=== PATIENT | female | born 1960 | race Two or more races ===

== ENCOUNTER 2018-12-11 13:04 | Emergency (ER) | payer OTHER ==
--- NOTE | 2018-12-11 13:09 | PDOC ---
Rapid Medical Evaluation Time Seen by Provider: 12/11/18 13:05 Medical Evaluation: Allergies Allergy/AdvReac Type Severity Reaction Status Date / Time No Known Allergies Allergy Verified 12/11/18 13:06 12/11/18 13:06 I have performed a brief in-person evaluation of this patient. The patient presents with a chief complaint of nausea and numbness since last night. Also reports shortness of breath with exertion. Patient reports no chest pain or dizziness Pertinent physical exam findings NAD lungs clear bilaterally, unlabored breathing heart s1s2 no pedal edema I have ordered the following labs, ekg The patient will proceed to the ED for further evaluation.
[2018-12-11 13:10] VITALS: TEMP 97.5; BMI 27.1
[2018-12-11 13:51] LABS: BASO % 0.5 % (0-2.0); EOS % 1.9 % (0-4.5); HEMATOCRIT 41.2 % (32.4-45.2); HEMOGLOBIN 14.2 GM/dL (10.7-15.3); LYMPH % 42.2 % (8-40); MCH 30.3 pg (25.7-33.7); MCHC 34.4 g/dl (32.0-36.0); MEAN CELL VOLUME 87.9 fl (80-96); MEAN PLT VOLUME 7.9 fl (7.5-11.1); MONO % 4.3 % (3.8-10.2); NEUT % 51.1 % (42.8-82.8); PLATELET COUNT 261 K/MM3 (134-434); RBC 4.68 M/mm3 (3.60-5.2); RDW 13.3 % (11.6-15.6); WHITE BLOOD COUNT 7.2 K/mm3 (4.0-10.0)
[2018-12-11 14:09] LABS: INR 0.97 (0.83-1.09); PROTHROMBIN TIME (PATIENT) 11.5 SEC (9.7-13.0)
[2018-12-11 14:11] LABS: ACTIVATED PTT 32.9 SECONDS (25.2-36.5)
[2018-12-11 14:26] LABS: ALBUMIN 4.2 g/dl (3.4-5.0); ALK PHOS 149 U/L (45-117); ANION GAP 8 MMOL/L (8-16); BILIRUBIN,TOTAL 0.3 mg/dL (0.2-1); BLOOD UREA NITROGEN 12 mg/dL (7-18); CALCIUM 9.3 mg/dL (8.5-10.1); CHLORIDE 106 mmol/L (98-107); CO2 25 mmol/L (21-32); CREATININE 0.7 mg/dL (0.55-1.3); GLUCOSE,RANDOM 83 mg/dL (74-106); POTASSIUM 3.9 mmol/L (3.5-5.1); SGOT/AST 15 U/L (15-37); SGPT/ALT 25 U/L (13-61); SODIUM 139 mmol/L (136-145); TOT PROT 7.8 g/dl (6.4-8.2)
--- NOTE | 2018-12-11 14:40 | PDOC ---
History of Present Illness - General History Source: Patient Exam Limitations: No Limitations - History of Present Illness Initial Comments: 12/11/18 15:00 58 yo F with a hx HTN presents to the emergency department with the left chest pain radiating to the left arm with associative left arm/hand numbness with nausea. Per the patient, she has had this numberness before in the past. Worse today. These symptoms occurred last night. constant, pressure like, 5/10, with no relieving factors. no emesis. worsening symptoms when exerting oneself. endorses mild SOB, chills, and loss of appetite. evaluated by dr portillo. no stress test or echo in the past. denies the following: trauma in neck and head, visual changes, ENT ssx, abdiominal pain, back pain, dysuria, incontinence, hematuria, diarrhea, sick contacts, and hematochezia. No leg pain/swelling. <Stan Odell - Last Filed: 12/12/18 11:09> <Cheyenne Zuleta - Last Filed: 12/14/18 10:14> - General Chief Complaint: Chest Pain Stated Complaint: SENT BY PCP Time Seen by Provider: 12/11/18 13:05 Past History - Past Medical History COPD: No HTN: Yes (PT STATES HX OF HYPERTENSION, BUT NOT ON MEDS, WAS TAKEN OFF BY PMD) - Immunization History Immunization Up to Date: Yes - Suicide/Smoking/Psychosocial Hx Smoking Status: No Smoking History: Never smoked Have you smoked in the past 12 months: No Number of Cigarettes Smoked Daily: 0 Information on smoking cessation initiated: No Hx Alcohol Use: No Drug/Substance Use Hx: No Substance Use Type: None Hx Substance Use Treatment: No <Satn Odell - Last Filed: 12/12/18 11:09> <Cheyenne Zuleta - Last Filed: 12/14/18 10:14> - Past Medical History Allergies/Adverse Reactions: Allergies Allergy/AdvReac Type Severity Reaction Status Date / Time No Known Allergies Allergy Verified 12/11/18 13:06 Home Medications: Ambulatory Orders NK [No Known Home Medication] 12/11/18 Review of Systems - Review of Systems Able to Perform ROS?: Yes Is the patient limited Kuwaiti proficient: No Constitutional: Yes: Chills, Loss of Appetite, Weakness. No: Diaphoresis, Fever HEENTM: No: Eye Pain, Ear Pain, Nose Pain, Throat Pain, Mouth Pain Respiratory: Yes: Shortness of Breath. No: Cough Cardiac (ROS): No: Chest Pain, Lightheadedness, Palpitations, Syncope, Chest Tightness ABD/GI: Yes: Nausea, Poor Appetite. No: Constipated, Diarrhea, Poor Fluid Intake, Rectal Bleeding, Vomiting, Tarry Stools : No: Burning, Dysuria, Hematuria Musculoskeletal: No: Back Pain, Joint Pain, Neck Pain Integumentary: No: Bruising, Erythema, Rash Neurological: No: Headache, Numbness, Tingling, Tremors, Dizziness Psychiatric: No: Change in Appetite Endocrine: No: Unexplained Weight Gain Hematologic/Lymphatic: No: Anemia <CassStan - Last Filed: 12/12/18 11:09> *Physical Exam - Vital Signs Last Vital Signs Temp Pulse Resp BP Pulse Ox 97.5 F L 93 H 17 166/102 H 100 12/11/18 13:06 12/11/18 13:06 12/11/18 13:06 12/11/18 13:06 12/11/18 13:06 - Physical Exam General Appearance: Yes: Nourished, Appropriately Dressed. No: Apparent Distress, Intoxicated HEENT: positive: EOMI, JOSE ROBERTO, Normal Voice, Symmetrical, Pharynx Normal, Hearing Grossly Normal. negative: Pale Conjunctivae, Scleral Icterus (R), Scleral Icterus (L), Muffled/Hoarse voice, Pharyngeal Erythema, Tonsillar Exudate, Tonsillar Erythema, Excessive drooling Neck: positive: Trachea midline, Supple. negative: Tender, Lymphadenopathy (R) , Lymphadenopathy (L), Tender lateral, Tender midline Respiratory/Chest: positive: Lungs Clear, Normal Breath Sounds. negative: Chest Tender, Respiratory Distress, Accessory Muscle Use, Rales, Rhonchi, Stridor, Wheezing Cardiovascular: positive: Regular Rhythm, Regular Rate, S1, S2. negative: Systolic Murmur Gastrointestinal/Abdominal: positive: Normal Bowel Sounds, Tender (epigastric region), Flat, Soft. negative: Guarding, Rebound Lymphatic: negative: Adenopathy Musculoskeletal: positive: Normal Inspection. negative: CVA Tenderness, Vertebral Tenderness Extremity: positive: Normal Capillary Refill, Normal Inspection, Normal Range of Motion. negative: Tender Integumentary: positive: Normal Color, Dry, Warm. 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 negative: Motor Strength 5/5 (4/5 left hand bonderizer operator strength. no deficits in sensation) <CassStan - Last Filed: 12/12/18 11:09> - Vital Signs Last Vital Signs Temp Pulse Resp BP Pulse Ox 97.5 F L 67 18 154/81 100 12/11/18 13:06 12/11/18 18:01 12/11/18 18:01 12/11/18 18:01 12/11/18 18:01 <Cheyenne Zuleta - Last Filed: 12/14/18 10:14> Moderate Sedation - Procedure Monitoring Vital Signs: Procedure Monitoring Vital Signs Temperature 97.5 F L 12/11/18 13:06 Pulse Rate 93 H 12/11/18 13:06 Respiratory Rate 17 12/11/18 13:06 Blood Pressure 166/102 H 12/11/18 13:06 O2 Sat by Pulse Oximetry (%) 100 12/11/18 13:06 <Stan Odell - Last Filed: 12/12/18 11:09> - Procedure Monitoring Vital Signs: Procedure Monitoring Vital Signs Temperature 97.5 F L 12/11/18 13:06 Pulse Rate 67 12/11/18 18:01 Respiratory Rate 18 12/11/18 18:01 Blood Pressure 154/81 12/11/18 18:01 O2 Sat by Pulse Oximetry (%) 100 12/11/18 18:01 <Cheyenne Zuleta - Last Filed: 12/14/18 10:14> Heart Score/ECG Review - History History: Slightly suspicious - Electrocardiogram EKG: Normal - Age Age: 45-65 - Risk Factors Based on the list above the patient has:: 1-2 risk factors - Troponin Troponin: </= normal limit - Score Heart Score - Total: 2 <CassStan - Last Filed: 12/12/18 11:09> ED Treatment Course - LABORATORY CBC & Chemistry Diagram: 12/11/18 13:22 12/11/18 13:22 - ADDITIONAL ORDERS Additional order review: Laboratory Results 12/11/18 12/11/18 13:22 13:22 PT with INR 11.50 INR 0.97 PTT (Actin FS) 32.9 Sodium 139 Potassium 3.9 Chloride 106 Carbon Dioxide 25 Anion Gap 8 BUN 12 Creatinine 0.7 Creat Clearance w eGFR > 60 Random Glucose 83 Calcium 9.3 Total Bilirubin 0.3 AST 15 ALT 25 Alkaline Phosphatase 149 H Troponin I < 0.02 Total Protein 7.8 Albumin 4.2 12/11/18 13:22 RBC 4.68 MCV 87.9 MCHC 34.4 RDW 13.3 MPV 7.9 Neutrophils % 51.1 Lymphocytes % 42.2 H D Monocytes % 4.3 Eosinophils % 1.9 Basophils % 0.5 <Stan Odell - Last Filed: 12/12/18 11:09> - LABORATORY CBC & Chemistry Diagram: 12/11/18 13:22 12/11/18 13:22 - ADDITIONAL ORDERS Additional order review: 12/11/18 13:22 RBC 4.68 MCV 87.9 MCHC 34.4 RDW 13.3 MPV 7.9 Neutrophils % 51.1 Lymphocytes % 42.2 H D Monocytes % 4.3 Eosinophils % 1.9 Basophils % 0.5 - RADIOLOGY Radiology Studies Ordered: Category Date Time Status CHEST X-RAY PORTABLE* [RAD] Stat Radiology 12/11/18 16:13 Completed - Medications Given in the ED: ED Medications Discontinued Medications Generic Name Dose Route Start Last Admin Trade Name Carmelo PRN Reason Stop Dose Admin Al Hydroxide/Mg Hydroxide 30 ml 12/11/18 16:21 12/11/18 16:55 Mylanta Oral Suspension - PO 12/11/18 16:22 30 ml ONCE ONE Administration Famotidine/Sodium Chloride 20 mg in 50 mls @ 100 mls/hr 12/11/18 16:21 16:55 Pepcid 20 Mg Premixed Ivpb - IVPB 12/11/18 16:50 100 mls/hr ONCE ONE Administration Ondansetron HCl 4 mg 12/11/18 16:21 12/11/18 16:55 Zofran - PO 12/11/18 16:22 4 mg ONCE ONE Administration <Cheyenne Zuleta - Last Filed: 12/14/18 10:14> Medical Decision Making - Medical Decision Making 58 yo F with a hx HTN presents to the emergency department with the left chest pain radiating to the left arm with associative left arm/hand numbness with nausea. Initial vitals: Initial Vital Signs Temp Pulse Resp BP Pulse Ox 97.5 F L 93 H 17 166/102 H 100 12/11/18 13:06 12/11/18 13:06 12/11/18 13:06 12/11/18 13:06 12/11/18 13:06 work up: ddx: ACS vs pNA pleuritis vs cervical radiculopathy vs gastritis vs pancreatitis vs GERD Laboratory Tests 12/11/18 12/11/18 12/11/18 13:22 13:22 13:22 WBC 7.2 RBC 4.68 Hgb 14.2 Hct 41.2 MCV 87.9 MCH 30.3 MCHC 34.4 RDW 13.3 Plt Count 261 MPV 7.9 Absolute Neuts (auto) 3.7 Neutrophils % 51.1 Lymphocytes % 42.2 H D Monocytes % 4.3 Eosinophils % 1.9 Basophils % 0.5 Nucleated RBC % 0 PT with INR 11.50 INR 0.97 PTT (Actin FS) 32.9 Sodium 139 Potassium 3.9 Chloride 106 Carbon Dioxide 25 Anion Gap 8 BUN 12 Creatinine 0.7 Creat Clearance w eGFR > 60 Random Glucose 83 Calcium 9.3 Total Bilirubin 0.3 AST 15 ALT 25 Alkaline Phosphatase 149 H Troponin I < 0.02 Total Protein 7.8 Albumin 4.2 12/11/18 16:58 WBC RBC Hgb Hct MCV MCH MCHC RDW Plt Count MPV Absolute Neuts (auto) Neutrophils % Lymphocytes % Monocytes % Eosinophils % Basophils % Nucleated RBC % PT with INR INR PTT (Actin FS) Sodium Potassium Chloride Carbon Dioxide Anion Gap BUN Creatinine Creat Clearance w eGFR Random Glucose Calcium Total Bilirubin AST ALT Alkaline Phosphatase Troponin I < 0.02 Total Protein Albumin HEART score 3 with risk factors and symptoms. patient has negative x2 troponins. significant improvement in symptoms with GI cocktail. patient's EKG shows NSR without ST elevations or depressions. CXR was within normal limits with no acute pathologies. she was sent in by her composing room supervisor. she was evaluated by Dr. Zheng who stated she can be DCd with follow up after negative x2 troponin. patient was given return precautions and instruction to follow up with her composing room supervisor within 72 hours after discharge. a call was placed to her composing room supervisor with the results and he is aware of her discharge. Dispo: Discharge <Stan Odell - Last Filed: 12/12/18 11:09> *DC/Admit/Observation/Transfer - Discharge Dispostion Decision to Admit order: No <Stan Odell - Last Filed: 12/12/18 11:09> <Cheyenne Zuleta - Last Filed: 12/14/18 10:14> Diagnosis at time of Disposition: Abdominal pain Chest pain Qualifiers: Chest pain type: unspecified Qualified Code(s): R07.9 - Chest pain, unspecified - Discharge Dispostion Disposition: HOME Condition at time of disposition: Improved - Referrals Referrals: Be Almazan MD [Primary Care Provider] - Gab Shelton MD [Staff Physician] - - Patient Instructions Printed Discharge Instructions: DI for Atypical Chest Pain Additional Instructions: you were seen in the emergency department for the evaluation of your chest pain. your troponins were negative which measures damage in the heart. please follow up with your composing room supervisor within 96 hours after discharge for follow up care and management. please return to the emergency department if you have worsening symptoms or new concerning symptoms such as fevers, shortness of breath worsening, and vomiting. please return if you become very weak. thank you. - Post Discharge Activity Forms/Work/School Notes: Back to Work
--- NOTE | 2018-12-11 14:58 | PDOC ---
Attending Attestation - Resident Resident Name: Skinny Crook - ED Attending Attestation I have performed the following: I have examined & evaluated the patient, The case was reviewed & discussed with the resident, I agree w/resident's findings & plan - [facility] HPI: 12/11/18 16:24 The patient is a 58 year old female, with a significant past medical history of HTN (untreated), who presents today with left chest wall pain which radiates to the left arm with occasional left finger/arm tingling.. last night she had episode of cp, nausea. denies exacerbating or alleviating factors. no food precipitants. sent in from Dr Weaver's office for cards assessment and workup for cp. Allergies: NKA Past Medical History: HTN (untreated) Social history: Lives with family. No smoking. No alcohol. No illicit drugs. PMD: Dr. Weaver 12/11/18 16:25 - Physicial Exam PE: 12/11/18 16:25 NAD, well appearing, PERRL, EOMI, MMM, nl conjunctiva, anicteric; neck supple. no chest wall tenderness. lungs clear, RRR, abdomen soft nontender. RAMOS x4, no focal neuro deficits. No peripheral edema. normal color for ethnicity, WWP. - Medical Decision Making 12/11/18 14:57 See HPI for details Vital signs reviewed, wnl. mildly hypertensive. Prior notes reviewed, including admissions, discharges and consultations. laboratory results and imaging reviewed, basic labs and lytes wnl CXR_no acute chest pathology, normal cardiac silhouette, no edema/effusion or consolidation. normal interstitial markings. Cardiac panel_neg trops x2, so unlikely ACS EKG normal sinus rhythm, no interval abnormalities, narrow QRS, ST and T wave segments and morphology normal. Nonspecific T wave abnormalities Heart score 2 based on comorbidities, age and history. MACE risk <1.7%. ED course: no acute events, chest pain free repeat VS normalized. no tachy or hypoxia. Reassessment, patient is also complaining of epigastric discomfort, nausea. She is drinking selzer water at the bedside with the carbonation likely precipitating her symptoms. Given Pepcid, Maalox and Zofran for her nausea with symptomatic relief. On reassessment abdominal symptoms have resolved, benign no peritoneal findings. At the bedside by supervisor wood room group, Dr Arzola who agrees with the plan for 2 trop, low risk cp and followup as outpatient with Dr Weaver call to Dr Weaver with clinical update, agreeable. Pt to be discharged in stable condition. Patient and family made aware of impression and plan, return precautions discussed (including but not limited to worsening pain or symptoms), fevers, or signs of infection, chest pain, respiratory distress, inability to tolerate oral intake, dehydration, syncope, or neurologic changes). Follow up with PMD and/or specialist as recommended, follow up information provided, take medications as instructed for duration of time. continue with supportive care, avoid triggers and precipitants. All questions answered to patient's satisfaction and expressed understanding and comfort with this. Patient does not suffer from an acute life-threatening medical condition at this time she is safe for outpatient follow-up. 12/11/18 17:53 12/11/18 17:58 <Cheyenne Zuleta - Last Filed: 12/11/18 17:58> Heart Score/ECG Review #1 ECG reviewed & interpreted by me at: 13:05 General ECG Interpretation: Sinus Rhythm Compared to previous ECG there are: No significant change 12/11/18 15:28 EKG normal sinus rhythm at 80 bpm, no interval abnormalities, narrow QRS, ST and T wave segments and morphology normal. Nonspecific T wave abnormality in III , no contiguous lead changes <Cheyenne Zuleta - Last Filed: 12/11/18 17:58> Attestations - Attestations 12/11/18 16:26 Documentation prepared by Shelley Orona, acting as medical payment poster for Cheyenne Zuleta MD. <Shelley Orona - Last Filed: 12/11/18 16:26>
[2018-12-11] MEDS ORDERED: MAG HYDROX/AL HYDROX/SIMETH 30 ML UNIT-DOSE CUP PO ONE (16:21)
[2018-12-11] MEDS ORDERED: ONDANSETRON 4 MG TABLET PO ONE (16:21)
[2018-12-11] MEDS ORDERED: FAMOTIDINE 20 MG/50 ML IVPB 20 MG/50 ML MG IVPB ONE ×2 (16:21→16:47)
--- NOTE | 2018-12-11 16:27 | CON.CARD ---
Consult Consult Specialty:: Cardiology Referred by:: ER Reason for Consultation:: chest pain - History of Present Illness Chief Complaint: chest pain, nausea History of Present Illness: 58F h/o HTN p/w nausea, pain in L chest radiating to left arm, left arm and hand numbness. Started last night, felt nauseated with constant pressure in center of chest associated with left hand numbness. Has not had chest discomfort before, thinks she has had the numbness and nausea in the past but less severe. Chest pain lasted several hours, now resolved, also still feels a little nauseated which has been going on since last night. Has mild dyspnea on exertion which has been stable, generally after climbing several flights of stairs, for years. Patient of Dr. Shelton. In the ER EKG no ischemic changes, trop neg x 1. - Alcohol/Substance Use Hx Alcohol Use: No - Smoking History Smoking history: Never smoked Have you smoked in the past 12 months: No Aproximately how many cigarettes per day: 0 - Social History History of Recent Travel: No Home Medications - Allergies Allergies/Adverse Reactions: Allergies Allergy/AdvReac Type Severity Reaction Status Date / Time No Known Allergies Allergy Verified 12/11/18 13:06 - Home Medications Home Medications: Ambulatory Orders NK [No Known Home Medication] 12/11/18 Family Disease History - Family Disease History Family History: Unremarkable Review of Systems - Review of Systems Constitutional: reports: No Symptoms Eyes: reports: No Symptoms HENT: reports: No Symptoms Neck: reports: No Symptoms Cardiovascular: reports: Chest Pain Respiratory: reports: No Symptoms Gastrointestinal: reports: Nausea Genitourinary: reports: No Symptoms Musculoskeletal: reports: No Symptoms Integumentary: reports: No Symptoms Neurological: reports: No Symptoms Endocrine: reports: No Symptoms Hematology/Lymphatic: reports: No Symptoms Psychiatric: reports: No Symptoms Vital Signs: Vital Signs Temperature 97.5 F L 12/11/18 13:06 Pulse Rate 93 H 12/11/18 13:06 Respiratory Rate 17 12/11/18 13:06 Blood Pressure 166/102 H 12/11/18 13:06 O2 Sat by Pulse Oximetry (%) 100 12/11/18 13:06 Constitutional: Yes: No Distress, Calm Eyes: Yes: Conjunctiva Clear, EOM Intact HENT: Yes: Atraumatic, Normocephalic Neck: Yes: Supple, Trachea Midline Respiratory: Yes: Regular, CTA Bilaterally Gastrointestinal: Yes: Normal Bowel Sounds, Soft Cardiovascular: Yes: Regular Rate and Rhythm JVD: No Carotid Bruit: No PMI: Non-Displaced Heart Sounds: Yes: S1, S2 Murmur: No: Systolic Murmur Musculoskeletal: No: Back Pain Extremities: No: Cold Edema: No Peripheral Pulses WNL: Yes Peripheral Pulses: 2+ Left Doralis Pedis, 2+ Right Dorsalis Pedis Integumentary: No: Jaundice Neurological: Yes: Alert, Oriented Psychiatric: No: Agitated - Other Data Labs, Other Data: CBC, BMP 12/11/18 13:22 12/11/18 13:22 INR, PTT INR 0.97 (0.83-1.09) 12/11/18 13:22 Troponin, BNP 12/11/18 13:22 Troponin I < 0.02 Troponin, BNP 12/11/18 13:22 Troponin I < 0.02 Assessment/Plan EKG: sinus, nl intervals, no ischemic changes 58F h/o HTN p/w chest pain, arm numbness, nausea Chest pain - EKG unremarkable, trop neg x 1 - less likely ACS - history less consistent with cardiac etiology - would rule out SD with second troponin, if negative no further inpatient cardiac workup - follow up with Dr. Shelton as outpatient HTN - BP elevated here in setting of nausea, chest pain - not on meds at home, per patient generally controlled - outpatient follow up
[2018-12-11] MEDS ORDERED: MAG HYDROX/AL HYDROX/SIMETH 30 ML UNIT-DOSE CUP ONE (16:47)
[2018-12-11] MEDS ORDERED: ONDANSETRON *ODT* 4 MG TABLET ONE (16:47)
[2018-12-11 18:02] VITALS: BP 154/81; PULSE 67
--- NOTE | 2018-12-12 17:17 | EKG ---
Test Reason : Blood Pressure : / mmHG Vent. Rate : 080 BPM Atrial Rate : 080 BPM P-R Int : 166 ms QRS Dur : 076 ms QT Int : 394 ms P-R-T Axes : 043 -04 032 degrees QTc Int : 454 ms POOR DATA QUALITY, INTERPRETATION MAY BE ADVERSELY AFFECTED NORMAL SINUS RHYTHM POSSIBLE LEFT ATRIAL ENLARGEMENT LEFT VENTRICULAR HYPERTROPHY ABNORMAL ECG WHEN COMPARED WITH ECG OF 28-JAN-2012 14:50, VENT. RATE HAS INCREASED BY 26 BPM CRITERIA FOR ANTERIOR INFARCT ARE NO LONGER PRESENT Confirmed by MD ASHLEY, RAJESH ([id number]) on 12/12/2018 5:17:04 PM Referred By: Confirmed By:RAJESH RAMIREZ MD
== END 2018-12-11 18:20 | disposition home or self-care (01) ==
LOC: JER 13:04
PROC: 3E033GC Introduction of Other Therapeutic Substance into Peripheral Vein, Percutaneous Approach (ICD-10-PCS; principal; 2018-12-11)
DX: R07.9 Chest pain, unspecified (principal); I10 Essential (primary) hypertension
CPT/HCPCS: 36415; 71045-TC-FY; 80053; 84484; 85025; 85610; 85730; 93005; 93010; 99283-25

== ENCOUNTER 2019-04-20 07:51 | Day surgery (SDC) | payer OTHER ==
[2019-04-19 14:18] VITALS: BMI 26.1
[2019-04-20 09:31] VITALS: TEMP 97.3
[2019-04-20 09:52] VITALS: PULSE 56
[2019-04-20 12:04] VITALS: BP 124/73
--- NOTE | 2019-04-23 17:08 | PATH ---
Surgical Pathology Report Patient Name: RODOLFO GARZA [facility]. Rec. #: [id number] /Age/Gender: 1960 (Age: 58) / F Account: [id number] Location: [facility]-ENDOSCOPY Taken: 04/20/2019 Received: 04/20/2019 Reported: 04/23/2019 Physicians: Adriano Howard M.D. Specimen(s) Received POLYP SIGMOID Clinical History History of adenoma Postoperative diagnosis: Polyp, diverticulosis Final Diagnosis SIGMOID COLON, POLYP, POLYPECTOMY: TUBULAR ADENOMA. Electronically Signed Jody Dc M.D. Gross Description Received in formalin, labeled "sigmoid polyp" is a coe, irregular portion of soft tissue measuring 0.3 cm. in greatest dimension. The specimen is submitted in toto in one cassette. /04/20/201904/20/2019
== END 2019-04-20 10:40 | disposition home or self-care (01) ==
LOC: JASU-ENDO 07:51
PROVIDERS: ATTEND Internal Medicine Gastroenterology
PROC: 0DBN8ZX Excision of Sigmoid Colon, Via Natural or Artificial Opening Endoscopic, Diagnostic (ICD-10-PCS; principal; 2019-04-20 08:45)
DX: Z12.11 Encounter for screening for malignant neoplasm of colon (principal); Z86.010 Personal history of colon polyps; K63.5 Polyp of colon; K64.8 Other hemorrhoids; K57.30 Diverticulosis of large intestine without perforation or abscess without bleeding
CPT/HCPCS: 88305-TC

== ENCOUNTER 2020-11-21 10:59 | Emergency (ER) | payer OTHER ==
[2020-11-21 11:08] VITALS: BP 122/80; PULSE 81; TEMP 97.8; BMI 26.5
[2020-11-21] MEDS ORDERED: IBUPROFEN 600 MG TABLET (FP) PO ONE (11:43)
== END 2020-11-21 12:25 | disposition home or self-care (01) ==
LOC: JERFT 10:59 → JER 10:59 → JERFT 12:25
DX: M79.642 Pain in left hand (principal)
CPT/HCPCS: 73110-TC-LT-FY; 73130-TC-LT-FY; 99283-25

== ENCOUNTER 2022-03-08 10:48 | Emergency (ER) | payer OTHER ==
[2022-03-08 11:08] VITALS: BMI 28.1
[2022-03-08] MEDS ORDERED: ONDANSETRON 4 MG/2 ML VIAL IVPUSH ONE (11:54)
[2022-03-08] MEDS ORDERED: MECLIZINE HCL 25 MG TABLET (FP) PO ONE (11:54)
[2022-03-08] MEDS ORDERED: SODIUM CHLORIDE 0.9% 500 ML INFUS.BAG IV ONE (11:54)
[2022-03-08] MEDS ORDERED: MECLIZINE HCL 25 MG TABLET (FP) ONE (12:00)
[2022-03-08] MEDS ORDERED: ONDANSETRON 4 MG/2 ML VIAL ONE (12:00)
[2022-03-08 13:49] LABS: BASO % 0.5 % (0-2.0); EOS % 1.8 % (0-4.5); HEMATOCRIT 40.3 % (32.4-45.2); HEMOGLOBIN 13.5 GM/dL (10.7-15.3); LYMPH % 16.7 % (8-40); MCH 29.3 pg (25.7-33.7); MCHC 33.6 g/dl (32.0-36.0); MEAN CELL VOLUME 87.1 fl (80-96); MEAN PLT VOLUME 7.8 fl (7.5-11.1); MONO % 6.9 % (3.8-10.2); NEUT % 74.1 % (42.8-82.8); PLATELET COUNT 227 10^3/uL (134-434); RBC 4.62 M/mm3 (3.60-5.2); RDW 13.3 % (11.6-15.6); WHITE BLOOD COUNT 6.4 K/mm3 (4.0-10.0)
[2022-03-08] MEDS ORDERED: ACETAMINOPHEN 1000 MG/100 ML BAG IVPB ONE (14:03)
[2022-03-08 14:04] LABS: CALCIUM 9.6 mg/dL (8.5-10.1)
[2022-03-08 14:05] LABS: BLOOD UREA NITROGEN 12.4 mg/dL (7-18); CO2 28 mmol/L (21-32); GLUCOSE,RANDOM 101 mg/dL (74-106)
[2022-03-08 14:08] LABS: CREATININE 0.7 mg/dL (0.55-1.3); SGOT/AST 14 U/L (15-37)
[2022-03-08 14:09] LABS: BILIRUBIN,TOTAL 0.4 mg/dL (0.2-1); TOT PROT 7.6 g/dl (6.4-8.2)
[2022-03-08 14:11] LABS: ALK PHOS 152 U/L (45-117)
[2022-03-08 14:12] LABS: ANION GAP 6 MMOL/L (8-16); CHLORIDE 106 mmol/L (98-107); SGPT/ALT 23 U/L (13-61); SODIUM 139 mmol/L (136-145)
[2022-03-08 15:10] VITALS: BP 146/70; PULSE 61; TEMP 98
[2022-03-08 16:15] LABS: EPI CELLS 2 /uL (0-25.1); HYALINE CASTS 0 /uL (0-3.1); URINE APPEARANCE CLEAR; URINE BACTERIA 35 /uL (0-1359); URINE BILIRUBIN NEGATIVE (NEGATIVE); URINE COLOR YELLOW; URINE GLUCOSE (UA) NEGATIVE (NEGATIVE); URINE KETONE NEGATIVE (NEGATIVE); URINE LEUK ESTERASE NEGATIVE (NEGATIVE); URINE NITRITE NEGATIVE (NEGATIVE); URINE PROTEIN NEGATIVE (NEGATIVE); URINE RBC 14 /uL (0-23.9); URINE UROBILINOGEN 0.2 mg/dL (0.2-1.0); URINE WBC 2 /uL (0-25.8)
== END 2022-03-08 17:00 | disposition home or self-care (01) ==
LOC: JER 10:48
PROC: 3E0333Z Introduction of Anti-inflammatory into Peripheral Vein, Percutaneous Approach (ICD-10-PCS; principal; 2022-03-08)
PROC: 3E033GC Introduction of Other Therapeutic Substance into Peripheral Vein, Percutaneous Approach (ICD-10-PCS; 2022-03-08)
DX: R42 Dizziness and giddiness (principal)
CPT/HCPCS: 36415; 71046-TC-FY; 80053; 81003; 84484; 85025; 87086; 93005; 93010; 99285-25

== ENCOUNTER 2024-10-08 04:46 | Day surgery (SDC) | payer OTHER ==
[2024-10-04 08:42] VITALS: BMI 29.6
[2024-10-08 10:00] VITALS: TEMP 98.6
[2024-10-08 10:02] VITALS: BP 107/64; PULSE 68; RESP 18
== END 2024-10-08 10:21 | disposition home or self-care (01) ==
LOC: JASU-ENDO 04:46
PROVIDERS: ATTEND Internal Medicine Gastroenterology
PROC: 0DBP8ZX Excision of Rectum, Via Natural or Artificial Opening Endoscopic, Diagnostic (ICD-10-PCS; 2024-10-08)
PROC: 0DBL8ZX Excision of Transverse Colon, Via Natural or Artificial Opening Endoscopic, Diagnostic (ICD-10-PCS; principal; 2024-10-08 08:30)
DX: Z12.11 Encounter for screening for malignant neoplasm of colon (principal); D12.3 Benign neoplasm of transverse colon; D12.8 Benign neoplasm of rectum; K57.30 Diverticulosis of large intestine without perforation or abscess without bleeding; Z86.0100 Personal history of colon polyps, unspecified; I10 Essential (primary) hypertension
CPT/HCPCS: 88305-TC

== ENCOUNTER 2024-12-21 10:54 | Emergency (ER) | payer OTHER ==
[2024-12-21 11:01] VITALS: BP 147/71; PULSE 80; RESP 16; TEMP 98; BMI 28.3
[2024-12-21] MEDS ORDERED: LIDOCAINE HCL 1%, 10 MG/ML (20ML VIAL) ONE (13:22)
[2024-12-21] MEDS ORDERED: CEPHALEXIN MONOHYDRATE 500 MG CAPSULE (UD) ONE (13:46)
[2024-12-21] MEDS ORDERED: ACETAMINOPHEN 500 MG TABLET (FP) ONE (13:47)
[2024-12-21] MEDS: ACETAMINOPHEN 500 MG TABLET (FP) PO ONE (13:51)
[2024-12-21] MEDS: CEPHALEXIN MONOHYDRATE 500 MG CAPSULE (UD) PO ONE (13:51)
[2024-12-21] MEDS: BACITRACIN ZINC 15 GM TUBE TOPICAL OINTMENT TP ONE (13:52)
[2024-12-21] MEDS ORDERED: BACITRACIN ZINC 15 GM TUBE TOPICAL OINTMENT ONE (13:52)
== END 2024-12-21 14:04 | disposition home or self-care (01) ==
LOC: JERFT 10:54
DX: L03.011 Cellulitis of right finger (principal)
CPT/HCPCS: 99283-25